=== PATIENT | female | born 1990 | race African-American/Black ===

== ENCOUNTER 2022-12-05 15:30 | Emergency (ER) | payer SELFPAY ==
--- OUTSIDE RECORDS SUMMARY | 2022-12-05 15:34 | XMS REPORT | Continuity of Care Document ---
:1990 Author Organization [facility] t Address [address] [facility] [address] [place] [id number] Care Team Providers Name Role Phone ARACELI CURRY Attending Clinician Unavailable Araceli Chester Attending Clinician [phone] FRANCISCO BINGHAM Attending Clinician Unavailable Lab, [facility] F[facility] Pob I Attending Clinician Unavailable Daisy Gonzalez Attending Clinician DAISY ESPANA Attending Clinician Unavailable Doctor Unassigned, [place] Attending Clinician Unavailable Matthew Rodas Attending Clinician Payers Payer Name Policy Type Policy Number Effective Date Expiration Date S quyen KAUR [id number] 2019 00:00:00 [facility] [id number] 2017 00:00:00 Problems Condition Condition Condition Status Onset Resolution Last Treating Co mments Source Name Details Category Date Date Treatment Clinician Date Cervical Cervical Disease Active 2019-03 Overview: Un kassy Papanicola Papanicola 0-19 Formattin ity of ou smear ou smear 00:00: g of this [place] as negative negative 00 note Medica l within within might be Branch last 12 last 12 different months months from the original. 12/2018, nil pap see scanned records Elevated Elevated Disease Active Unive rs blood blood 8-31 ity of pressure pressure 00:00: [place] reading reading 00 Medical without without Branch diagnosis diagnosis of of hypertensi hypertensi on on Well woman Well woman Disease Active U nivers exam exam 4-16 ity of 00:00: [place] 00 Medical Branch Well woman Well woman Disease Active 2018-0 U nivers exam exam 4-16 ity of 00:00: [place] 00 Medical Branch Obesity Obesity Disease Active Overview: Univ ers (BMI (BMI 7-23 Formattin ity of 30-39.9) 30-39.9) 00:00: g of this Derrick as 00 note Medical might be Branch different from the original. 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 Allergies, Adverse Reactions, Alerts Allergy Allergy Status Severity Reaction(s) Onset Inactive Treating Comm ents Source Name Type Date Date Clinician NO KNOWN Drug Active Univers ALLERGIE Class ity of S [facility] Social History Social Habit Start Date Stop Date Quantity Comments Source Exposure to Not sure [facility] SARS-CoV-2 [facility] (event) [place] Alcohol intake 2020-01-06 2020-01-06 Current drinker Unive rsity of 00:00:00 00:00:00 of alcohol [facility] (finding) [place] Tobacco use and 2020-01-06 2020-01-06 Never used Universit y of exposure 00:00:00 00:00:00 [facility] [place] [facility] Alcohol Comment 2012-08-17 2012-08-17 socially Universit y of 00:00:00 00:00:00 [facility] [place] [facility] Sex [birth year] At [birth year] Universit y of 00:00:00 00:00:00 [facility] [place] [facility] Smoking Status Start Date Stop Date Source Never smoker [facility] Medications Ordered Filled Start Stop Current Ordering Indication Dosage Frequency Signature Comments Components Source Medication Medication Date Date Medication? Clinician (SIG) Name Name ampicillin 0 202- No [id number] 500mg Take 1 Univers 500 mg 08-24 capsule by ity of capsule 00:00: 04:59 mouth 4 [place] 00 :00 (four) Medical times Branch daily for 10 days. ampicillin 2020- No [id number] 500mg Take 1 Univers 500 mg 08-24 capsule by ity of capsule 00:00: 04:59 mouth 4 [place] 00 :00 (four) Medical times Branch daily for 10 days. ibuprofen 2018- No 600mg 600 mg, Uni vers (IBU) 11-11 Oral, ity of tablet 600 03:22: 03:36 ONCE, 1 [place] as mg 00 :00 dose, Sat Medical 11/10/18 at Branch 2230, BASHIR cephALEXin 2018- No 500mg 500 mg, Un kassy (KEFLEX) 11-11 Oral, ity of capsule 500 03:21: 03:36 [place]CE[place] 1 [place] mg 00 :[place] dose, Sat Medical 11/10/18 at Branch 2230, BASHIR
Re ason for Anti-Infec tive: Empiric Therapy for Suspected Infection< br>Empiric Therapy Site: Skin / Soft tissue
Duration of therapy: 72 hours tetanus-dip 2019- No .5mL 0.5 mL, Un kassy htheria 11-11 Intramuscu ity o f toxoids 02:39: 02:53 lar, ONCE, [place] as (TDVAX) 2-2 00 :00 1 dose, Medic al Lf unit/0.5 [facility] mL 11/10/18 at injection 2145, BASHIR 0.5 mL cephALEXin 2019- No [id number] 500mg Take 1 Univers (KEFLEX) 11-10 capsule by ity of 500 mg 00:00: 04:59 mouth 4 [place] capsule 00 :00 (four) Medical times Branch daily for 7 days. oseltamivir 2017- Yes 75mg Take 1 Univ ers (TAMIFLU) 1-02 capsule by ity of 75 mg 00:00: mouth 2 [place] capsule 00 (two) Medical times Branch daily. ondansetron 2017-0 Yes 8mg Take 1 Univ ers (ZOFRAN, 1-02 tablet by ity of HYDROCHLORI 00:00: mouth [place] DE,) 8 mg 00 every 8 Medical tablet (eight) Branch hours as needed for Nausea and Vomiting (N/V). ibuprofen 2017- Yes 600mg Take 1 Unive rs 600 mg 1-02 tablet by ity of tablet 00:00: mouth [place] 00 every 6 Medical (six) Branch hours as needed for Pain (scale 4-6). oseltamivir 2018-0 Yes 75mg Take 1 Univ ers (TAMIFLU) 1-02 capsule by ity of 75 mg 00:00: mouth 2 [place] capsule 00 (two) Medical times Branch daily. ondansetron 2018-0 Yes 8mg Take 1 Univ ers (ZOFRAN, 1-02 tablet by ity of HYDROCHLORI 00:00: mouth [place] DE,) 8 mg 00 every 8 Medical tablet (eight) Branch hours as needed for Nausea and Vomiting (N/V). ibuprofen 2018-0 Yes 600mg Take 1 Unive rs 600 mg 1-02 tablet by ity of tablet 00:00: mouth [place] 00 every 6 Medical (six) Branch hours as needed for Pain (scale 4-6). oseltamivir 2018-0 Yes 75mg Take 1 Univ ers (TAMIFLU) 1-02 capsule by ity of 75 mg 00:00: mouth 2 [place] capsule 00 (two) Medical times Branch daily. ondansetron 2018-0 Yes 8mg Take 1 Univ ers (ZOFRAN, 1-02 tablet by ity of HYDROCHLORI 00:00: mouth [place] DE,) 8 mg 00 every 8 Medical tablet (eight) Branch hours as needed for Nausea and Vomiting (N/V). ibuprofen 2018-0 Yes 600mg Take 1 Unive rs 600 mg 1-02 tablet by ity of tablet 00:00: mouth [place] 00 every 6 Medical (six) Branch hours as needed for Pain (scale 4-6). oseltamivir 2018-0 Yes 75mg Take 1 Univ ers (TAMIFLU) 1-02 capsule by ity of 75 mg 00:00: mouth 2 [place] capsule 00 (two) Medical times Branch daily. ondansetron 2018-0 Yes 8mg Take 1 Univ ers (ZOFRAN, 1-02 tablet by ity of HYDROCHLORI 00:00: mouth [place] DE,) 8 mg 00 every 8 Medical tablet (eight) Branch hours as needed for Nausea and Vomiting (N/V). ibuprofen 2018-0 Yes 600mg Take 1 Unive rs 600 mg 1-02 tablet by ity of tablet 00:00: mouth [place] 00 every 6 Medical (six) Branch hours as needed for Pain (scale 4-6). oseltamivir 2018-0 Yes 75mg Take 1 Univ ers (TAMIFLU) 1-02 capsule by ity of 75 mg 00:00: mouth 2 [place] capsule 00 (two) Medical times Branch daily. ondansetron 2018-0 Yes 8mg Take 1 Univ ers (ZOFRAN, 1-02 tablet by ity of HYDROCHLORI 00:00: mouth [place] DE,) 8 mg 00 every 8 Medical tablet (eight) Branch hours as needed for Nausea and Vomiting (N/V). ibuprofen 2018-0 Yes 600mg Take 1 Unive rs 600 mg 1-02 tablet by ity of tablet 00:00: mouth [place] 00 every 6 Medical (six) Branch hours as needed for Pain (scale 4-6). oseltamivir 2018-0 Yes 75mg Take 1 Univ ers (TAMIFLU) 1-02 capsule by ity of 75 mg 00:00: mouth 2 [place] capsule 00 (two) Medical times Branch daily. ondansetron 2018-0 Yes 8mg Take 1 Univ ers (ZOFRAN, 1-02 tablet by ity of HYDROCHLORI 00:00: mouth [place] DE,) 8 mg 00 every 8 Medical tablet (eight) Branch hours as needed for Nausea and Vomiting (N/V). ibuprofen 2018-0 Yes 600mg Take 1 Unive rs 600 mg 1-02 tablet by ity of tablet 00:00: mouth [place] 00 every 6 Medical (six) Branch hours as needed for Pain (scale 4-6). oseltamivir 2018-0 Yes 75mg Take 1 Univ ers (TAMIFLU) 1-02 capsule by ity of 75 mg 00:00: mouth 2 [place] capsule 00 (two) Medical times Branch daily. ondansetron 2018-0 Yes 8mg Take 1 Univ ers (ZOFRAN, 1-02 tablet by ity of HYDROCHLORI 00:00: mouth [place] DE,) 8 mg 00 every 8 Medical tablet (eight) Branch hours as needed for Nausea and Vomiting (N/V). ibuprofen 2018-0 Yes 600mg Take 1 Unive rs 600 mg 1-02 tablet by ity of tablet 00:00: mouth [place] 00 every 6 Medical (six) Branch hours as needed for Pain (scale 4-6). oseltamivir 2018-0 Yes 75mg Take 1 Univ ers (TAMIFLU) 1-02 capsule by ity of 75 mg 00:00: mouth 2 [place] capsule 00 (two) Medical times Branch daily. ondansetron 2018-0 Yes 8mg Take 1 Univ ers (ZOFRAN, 1-02 tablet by ity of HYDROCHLORI 00:00: mouth [place] DE,) 8 mg 00 every 8 Medical tablet (eight) Branch hours as needed for Nausea and Vomiting (N/V). ibuprofen 2018-0 Yes 600mg Take 1 Unive rs 600 mg 1-02 tablet by ity of tablet 00:00: mouth [place] 00 every 6 Medical (six) Branch hours as needed for Pain (scale 4-6). oseltamivir 2018-0 Yes 75mg Take 1 Univ ers (TAMIFLU) 1-02 capsule by ity of 75 mg 00:00: mouth 2 [place] capsule 00 (two) Medical times Branch daily. ondansetron 2018-0 Yes 8mg Take 1 Univ ers (ZOFRAN, 1-02 tablet by ity of HYDROCHLORI 00:00: mouth [place] DE,) 8 mg 00 every 8 Medical tablet (eight) Branch hours as needed for Nausea and Vomiting (N/V). ibuprofen 2018-0 Yes 600mg Take 1 Unive rs 600 mg 1-02 tablet by ity of tablet 00:00: mouth [place] 00 every 6 Medical (six) Branch hours as needed for Pain (scale 4-6). oseltamivir 2018-0 Yes 75mg Take 1 Univ ers (TAMIFLU) 1-02 capsule by ity of 75 mg 00:00: mouth 2 [place] capsule 00 (two) Medical times Branch daily. ondansetron 2018-0 Yes 8mg Take 1 Univ ers (ZOFRAN, 1-02 tablet by ity of HYDROCHLORI 00:00: mouth [place] DE,) 8 mg 00 every 8 Medical tablet (eight) Branch hours as needed for Nausea and Vomiting (N/V). ibuprofen 2018-0 Yes 600mg Take 1 Unive rs 600 mg 1-02 tablet by ity of tablet 00:00: mouth [place] 00 every 6 Medical (six) Branch hours as needed for Pain (scale 4-6). oseltamivir 2018-0 Yes 75mg Take 1 Univ ers (TAMIFLU) 1-02 capsule by ity of 75 mg 00:00: mouth 2 [place] capsule 00 (two) Medical times Branch daily. ondansetron 2018-0 Yes 8mg Take 1 Univ ers (ZOFRAN, 1-02 tablet by ity of HYDROCHLORI 00:00: mouth [place] DE,) 8 mg 00 every 8 Medical tablet (eight) Branch hours as needed for Nausea and Vomiting (N/V). ibuprofen 2018-0 Yes 600mg Take 1 Unive rs 600 mg 1-02 tablet by ity of tablet 00:00: mouth [place] 00 every 6 Medical (six) Branch hours as needed for Pain (scale 4-6). oseltamivir 2018-0 Yes 75mg Take 1 Univ ers (TAMIFLU) 1-02 capsule by ity of 75 mg 00:00: mouth 2 [place] capsule 00 (two) Medical times Branch daily. ondansetron 2018-0 Yes 8mg Take 1 Univ ers (ZOFRAN, 1-02 tablet by ity of HYDROCHLORI 00:00: mouth [place] DE,) 8 mg 00 every 8 Medical tablet (eight) Branch hours as needed for Nausea and Vomiting (N/V). ibuprofen 2018-0 Yes 600mg Take 1 Unive rs 600 mg 1-02 tablet by ity of tablet 00:00: mouth [place] 00 every 6 Medical (six) Branch hours as needed for Pain (scale 4-6). oseltamivir 2018-0 Yes 75mg Take 1 Univ ers (TAMIFLU) 1-02 capsule by ity of 75 mg 00:00: mouth 2 [place] capsule 00 (two) Medical times Branch daily. ondansetron 2018-0 Yes 8mg Take 1 Univ ers (ZOFRAN, 1-02 tablet by ity of HYDROCHLORI 00:00: mouth [place] DE,) 8 mg 00 every 8 Medical tablet (eight) Branch hours as needed for Nausea and Vomiting (N/V). ibuprofen 2018-0 Yes 600mg Take 1 Unive rs 600 mg 1-02 tablet by ity of tablet 00:00: mouth [place] 00 every 6 Medical (six) Branch hours as needed for Pain (scale 4-6). metroNIDAZO 2016-0 Yes [id number] 500mg Take 1 Tab Univers LE (FLAGYL) 2-23 by mouth 2 it y of 500 mg 00:00: (two) [place] tablet 00 times Medical daily. Branch metroNIDAZO 2016-0 Yes [id number] 500mg Take 1 Tab Univers LE (FLAGYL) 2-23 by mouth 2 it y of 500 mg 00:00: (two) [place] tablet 00 times Medical daily. Branch metroNIDAZO Yes [id number] 500mg Take 1 Tab Univers LE (FLAGYL) 2-23 by mouth 2 it y of 500 mg 00:00: (two) [place] tablet 00 times Medical daily. Branch metroNIDAZO 0 Yes [id number] 500mg Take 1 Tab Univers LE (FLAGYL) 2-23 by mouth 2 it y of 500 mg 00:00: (two) [place] tablet 00 times Medical daily. Branch metroNIDAZO Yes [id number] 500mg Take 1 Tab Univers LE (FLAGYL) 2-23 by mouth 2 it y of 500 mg 00:00: (two) [place] tablet 00 times Medical daily. Branch metroNIDAZO Yes [id number] 500mg Take 1 Tab Univers LE (FLAGYL) 2-23 by mouth 2 it y of 500 mg 00:00: (two) [place] tablet 00 times Medical daily. [place] metroNIDAZO Yes [id number] 500mg Take 1 Tab Univers LE (FLAGYL) 2-23 by mouth 2 it y of 500 mg 00:00: (two) [place] tablet 00 times Medical daily. [place] metroNIDAZO Yes [id number] 500mg Take 1 Tab Univers LE (FLAGYL) 2-23 by mouth 2 it y of 500 mg 00:00: (two) [place] tablet 00 times Medical daily. [place] metroNIDAZO Yes [id number] 500mg Take 1 Tab Univers LE (FLAGYL) 2-23 by mouth 2 it y of 500 mg 00:00: (two) [place] tablet 00 times Medical daily. [place] metroNIDAZO Yes [id number] 500mg Take 1 Tab Univers LE (FLAGYL) 2-23 by mouth 2 it y of 500 mg 00:00: (two) [place] tablet 00 times Medical daily. [place] metroNIDAZO Yes [id number] 500mg Take 1 Tab Univers LE (FLAGYL) 2-23 by mouth 2 it y of 500 mg 00:00: (two) [place] tablet 00 times Medical daily. [place] metroNIDAZO Yes [id number] 500mg Take 1 Tab Univers LE (FLAGYL) 2-23 by mouth 2 it y of 500 mg 00:00: (two) [place] tablet 00 times Medical daily. [place] metroNIDAZO Yes [id number] 500mg Take 1 Tab Univers LE (FLAGYL) 2-23 by mouth 2 it y of 500 mg 00:00: (two) [place] tablet 00 times Medical daily. Branch ORTHO 2014- Yes 1{tbl} Take 1 Tab Univ ers TRI-CYCLEN- 7-20 by mouth ity of 28 (ORTHO 00:00: daily. [place] TRI-CYCLEN, Medical 28,) Branch 0.18/0.215/ 0.25 mg-35 mcg (28) tablet ORTHO Yes 1{tbl} Take 1 Tab Univ ers TRI-CYCLEN- 7-20 by mouth ity of 28 (ORTHO 00:00: daily. [place] TRI-CYCLEN, Medical 28,) Branch 0.18/0.215/ 0.25 mg-35 mcg (28) tablet ORTHO Yes 1{tbl} Take 1 Tab Univ ers TRI-CYCLEN- 7-20 by mouth ity of 28 (ORTHO 00:00: daily. [place] TRI-CYCLEN, Medical 28,) Branch 0.18/0.215/ 0.25 mg-35 mcg (28) tablet ORTHO Yes 1{tbl} Take 1 Tab Univ ers TRI-CYCLEN- 7-20 by mouth ity of 28 (ORTHO 00:00: daily. [place] TRI-CYCLEN, Medical 28,) Branch 0.18/0.215/ 0.25 mg-35 mcg (28) tablet ORTHO Yes 1{tbl} Take 1 Tab Univ ers TRI-CYCLEN- 7-20 by mouth ity of 28 (ORTHO 00:00: daily. [place] TRI-CYCLEN, Medical 28,) Branch 0.18/0.215/ 0.25 mg-35 mcg (28) tablet ORTHO Yes 1{tbl} Take 1 Tab Univ ers TRI-CYCLEN- 7-20 by mouth ity of 28 (ORTHO 00:00: daily. [place] TRI-CYCLEN, Medical 28,) Branch 0.18/0.215/ 0.25 mg-35 mcg (28) tablet ORTHO Yes 1{tbl} Take 1 Tab Univ ers TRI-CYCLEN- 7-20 by mouth ity of 28 (ORTHO 00:00: daily. [place] TRI-CYCLEN, Medical 28,) Branch 0.18/0.215/ 0.25 mg-35 mcg (28) tablet ORTHO Yes 1{tbl} Take 1 Tab Univ ers TRI-CYCLEN- 7-20 by mouth ity of 28 (ORTHO 00:00: daily. [place] TRI-CYCLE [facility] ,) Branch 0.18/0.215/ 0.25 mg-35 mcg (28) tablet ORTHO 2014- Yes 1{tbl} Take 1 Tab Univ ers TRI-CYCLEN- 7-20 by mouth ity of 28 (ORTHO 00:00: daily. [place] TRI-CYCLE [facility] ,) Branch 0.18/0.215/ 0.25 mg-35 mcg (28) tablet ORTHO Yes 1{tbl} Take 1 Tab Univ ers TRI-CYCLEN- 7-20 by mouth ity of 28 (ORTHO 00:00: daily. [place] TRI-CYCLE [facility] ,) Branch 0.18/0.215/ 0.25 mg-35 mcg (28) tablet ORTHO Yes 1{tbl} Take 1 Tab Univ ers TRI-CYCLEN- 7-20 by mouth ity of 28 (ORTHO 00:00: daily. [place] TRI-CYCLE[address] ,) Branch 0.18/0.215/ 0.25 mg-35 mcg (28) tablet ORTHO Yes 1{tbl} Take 1 Tab Univ ers TRI-CYCLEN- 7-20 by mouth ity of 28 (ORTHO 00:00: daily. [place] TRI-CYCLE [address] [place] [address] ,) Branch 0.18/0.215/ 0.25 mg-35 mcg (28) tablet ORTHO Yes 1{tbl} Take 1 Tab Univ ers TRI-CYCLEN- 7-20 by mouth ity of 28 (ORTHO 00:00: daily. [place] TRI-CY[address] ,) Branch 0.18/0.215/ 0.25 mg-35 mcg (28) tablet Immunizations Ordered Filled Immunization Date Status Comments [facility] e Immunization Name Name SARS-COV-2 COVID-19 2020-06-13 Completed Unive rsity of PFIZER VACCINE 00:00:00 [facility] SARS-COV-2 COVID-19 2020-06-13 Completed Unive rsity of PFIZER VACCINE 00:00:00 [facility] SARS-COV-2 COVID-19 2020-06-13 Completed Unive rsity of PFIZER VACCINE 00:00:00 [facility] SARS-COV-2 COVID-19 2020-06-13 Completed Unive rsity of PFIZER VACCINE 00:00:00 [facility] SARS-COV-2 COVID-19 2020-06-13 Completed Unive rsity of PFIZER VACCINE 00:00:00 [facility] SARS-COV-2 COVID-19 2020-05-23 Completed Unive rsity of PFIZER VACCINE 00:00:00 [facility] SARS-COV-2 COVID-19 2020-05-23 Completed Unive rsity of PFIZER VACCINE 00:00:00 [facility] SARS-COV-2 COVID-19 2020-05-23 Completed Unive rsity of PFIZER VACCINE 00:00:00 [facility] SARS-COV-2 COVID-19 2020-05-23 Completed Unive rsity of PFIZER VACCINE 00:00:00 [facility] SARS-COV-2 COVID-19 2020-05-23 Completed Unive rsity of PFIZER VACCINE 00:00:00 [facility] Influenza Virus 2020-01-06 Completed Universit y of Vaccine Quad .5 mL 00:00:00 [place] [facility] IM 6+ MO Branch Influenza Virus 2020-01-06 Completed Universit y of Vaccine [place] .5 mL 00:00:00 [place] [facility] IM 6+ MO Branch Influenza Virus 2020-01-06 Completed Universit y of Vaccine [place] .5 mL 00:00:00 [facility] 6+ MO Branch Influenza Virus 2020-01-06 Completed Universit y of Vaccine [place] .5 mL 00:00:00 [place] [facility] IM 6+ MO Branch Influenza Virus 2020-01-06 Completed Universit y of Vaccine [place] .5 mL 00:00:00 [place] [facility] IM 6+ MO Branch Influenza Virus 2020-01-06 Completed Universit y of Vaccine [place] .5 mL 00:00:00 [place] [facility] IM 6+ MO Branch Influenza Virus 2020-01-06 Completed Universit y of Vaccine [place] .5 mL 00:00:00 [place] [facility] IM 6+ MO Branch Influenza Virus 2020-01-06 Completed Universit y of Vaccine [place] .5 mL 00:00:00 [facility] 6+ MO Branch Td 2018-11-10 Completed University of 00:00:00 [facility] [place] [facility] Td 2018-11-10 Completed University of 00:00:00 [place] [facility] Td 2018-11-10 Completed University of 00:00:00 [place] [facility] Td 2018-11-10 Completed University of 00:00:00 [place] [facility] Td 2018-11-10 Completed University of 00:00:00 [place] [facility] Td 2018-11-10 Completed University of 00:00:00 [place] [facility] Td 2018-11-10 Completed University of 00:00:00 [place] [facility] Td 2018-11-10 Completed University of 00:00:00 [place] [facility] Td 2018-11-10 Completed University of 00:00:00 [place] [facility] Td 2018-11-10 Completed University of 00:00:00 [place] [facility] Td 2018-11-10 Completed University of 00:00:00 [place] [facility] Td 2018-11-10 Completed University of 00:00:00 [place] [facility] HPV 2009-02-27 Completed University of 00:00:00 [place] [facility] HPV 2009-02-27 Completed University of 00:00:00 [place] [facility] HPV 2009-02-27 Completed University of 00:00:00 [place] [facility] HPV 2009-02-27 Completed University of 00:00:00 [place] [facility] HPV 2009-02-27 Completed University of 00:00:00 [place] [facility] HPV 2009-02-27 Completed University of 00:00:00 [place] [facility] HPV 2009-02-27 Completed University of 00:00:00 [place] [facility] HPV 2009-02-27 Completed University of 00:00:00 [place] [facility] HPV 2009-02-27 Completed University of 00:00:00 [place] [facility] HPV 2009-02-27 Completed University of 00:00:00 [place] [facility] HPV 2009-02-27 Completed University of 00:00:00 [place] [facility] HPV 2009-02-27 Completed University of 00:00:00 [place] [facility] HPV 2009-02-27 Completed University of 00:00:00 [place] [facility] HPV 2008-08-26 Completed University of 00:00:00 [place] [facility] HPV 2008-08-26 Completed University of 00:00:00 [place] [facility] HPV 2008-08-26 Completed University of 00:00:00 [place] [facility] HPV 2008-08-26 Completed University of 00:00:00 [place] [facility] HPV 2008-08-26 Completed University of 00:00:00 [place] [facility] HPV 2008-08-26 Completed University of 00:00:00 [place] [facility] HPV 2008-08-26 Completed University of 00:00:00 [place] [facility] HPV 2008-08-26 Completed University of 00:00:00 [place] [facility] HPV 2008-08-26 Completed University of 00:00:00 [place] [facility] HPV 2008-08-26 Completed University of 00:00:00 [place] [facility] HPV 2008-08-26 Completed University of 00:00:00 [place] [facility] HPV 2008-08-26 Completed University of 00:00:00 [place] [facility] HPV 2008-08-26 Completed University of 00:00:00 [place] [facility] HPV 2008-01-16 Completed University of 00:00:00 [place] [facility] HPV 2008-01-16 Completed University of 00:00:00 [place] [facility] HPV 2008-01-16 Completed University of 00:00:00 [place] [facility] HPV 2008-01-16 Completed University of 00:00:00 [place] [facility] HPV 2008-01-16 Completed University of 00:00:00 [place] [facility] HPV 2008-01-16 Completed University of 00:00:00 [place] [facility] HPV 2008-01-16 Completed University of 00:00:00 [place] [facility] HPV 2008-01-16 Completed University of 00:00:00 [place] [facility] HPV 2008-01-16 Completed University of 00:00:00 [place] [facility] HPV 2008-01-16 Completed University of 00:00:00 [place] [facility] HPV 2008-01-16 Completed University of 00:00:00 [place] [facility] HPV 2008-01-16 Completed University of 00:00:00 [place] [facility] HPV 2008-01-16 Completed University of 00:00:00 [place] [facility] Td 2006 Completed University of 00:00:00 [place] [facility] Td 2006 Completed University of 00:00:00 [place] [facility] Td 2006 Completed University of 00:00:00 [place] [facility] Td 2006 Completed University of 00:00:00 [place] [facility] Td 2006 Completed University of 00:00:00 [place] [facility] Td 2006 Completed University of 00:00:00 [place] [facility] Td 2006 Completed University of 00:00:00 [place] [facility] Td 2006 Completed University of 00:00:00 [place] [facility] Td 2006 Completed University of 00:00:00 [place] [facility] Td 2006 Completed University of 00:00:00 [place] [facility] Td 2006 Completed University of 00:00:00 [place] [facility] Td 2006 Completed University of 00:00:00 [place] [facility] Td 2006 Completed University of 00:00:00 [place] [facility] Vital Signs Vital Name Observation Time Observation Value Comments Source Systolic blood 2020-08-21 14:59:00 131 mm[Hg] Univer sity of pressure [place] [facility] Diastolic blood 2020-08-21 14:59:00 94 mm[Hg] Unive rsity of pressure [place] [facility] Heart rate 2020-08-21 14:58:00 83 /min [facility] [place] [facility] Body temperature 2020-08-21 14:58:00 36.78 Amber [facility] [place] [facility] Respiratory rate 2020-08-21 14:58:00 16 /min [facility] [place] [facility] Body height 2020-08-21 14:58:00 160 cm [facility] [place] [facility] Body weight 2020-08-21 14:58:00 99.394 kg [facility] [place] [facility] BMI 2020-08-21 14:58:00 38.82 kg/m2 [facility] [place] [facility] Systolic blood 2020-01-06 14:40:00 129 mm[Hg] Univer sity of pressure [place] [facility] Diastolic blood 2020-01-06 14:40:00 88 mm[Hg] Unive rsity of pressure [place] [facility] Heart rate 2020-01-06 14:40:00 69 /min [facility] [place] [facility] Body temperature 2020-01-06 14:40:00 36.56 Amber [facility] [place] [facility] Respiratory rate 2020-01-06 14:40:00 16 /min [facility] [place] [facility] Body height 2020-01-06 14:40:00 160 cm [facility] Body weight 2020-01-06 14:40:00 99.565 kg [facility] BMI 2020-01-06 14:40:00 38.88 kg/m2 [facility] Systolic blood 2019-11-18 19:42:00 145 mm[Hg] [facility] Diastolic blood 2019-11-18 19:42:00 97 mm[Hg] [facility] [place] Heart rate 2019-11-18 19:41:00 65 /min [facility] Body temperature 2019-11-18 19:41:00 37 Amber [facility] Respiratory rate 2019-11-18 19:41:00 16 /min Univ [facility] Body height 2019-11-18 19:41:00 160 cm [facility] Body weight 2019-11-18 19:41:00 98.998 kg [facility] BMI 2019-11-18 19:41:00 38.66 kg/m2 [facility] Systolic blood 2018-11-11 02:42:00 138 mm[Hg] Univer sity of pressure [facility] Diastolic blood 2018-11-11 02:42:00 92 mm[Hg] Unive rsity of [facility] Heart rate 2018-11-11 02:42:00 91 /min [facility] Body temperature 2018-11-11 02:42:00 36.72 Amber [facility] ersity of [facility] Respiratory rate 2018-11-11 02:42:00 18 /min [facility] [place] Body weight 2018-11-11 02:42:00 99.791 kg [facility] BMI 2018-11-11 02:42:00 38.97 kg/m2 [facility] Oxygen saturation in 2018-11-11 02:42:00 100 /min [facility] blood by [facility] Pulse oximetry Branch Procedures Procedure Date / Time Performed Performing Clinician Sourc e POCT URINALYSIS W/O 2020-08-21 15:02:00 Araceli Curry [facility] [place] SPECIFIC GRAVITY [facility] FLU VACC ([id number]), 2020-01-06 14:50:58 [facility]aceli [facility], IM, QUAD Medical Bran ch ASSIGNMENT OF BENEFITS 2019-11-18 19:16:42 Doctor Unassigned, No [facility] Name [facility] XR HAND 3+ VW RIGHT 2018-11-11 02:49:58 Matthew [facility] NOTICE OF PRIVACY 2018-11-11 02:28:37 Doctor Unassigned, No [facility] Branch CONSENT/REFUSAL FOR 2018-11-11 02:28:18 Doctor Unassigned, No [facility] DI[facility] AND Name Medical Branch TREATMENT Encounters Start End Encounter Admission Attending Care Care Encounter Source Date/Time Date/Time Type Type Clinicians Facility Department ID 2022-01-21 2022-01-21 Outpatient NIMCO [facility] [id number] Aman 13:12:49 13:12:49 1104 F Catarino 2020-11-24 2020-11-24 Outpatient Mohinder CURRY [facility] [id number] Univers 14:15:00 14:15:00 ARACELI casas [facility] 2020-11-18 2020-11-18 Outpatient Mohinder CURRY [facility] [id number] Univers 08:15:00 08:15:00 ARACELI casas [facility] 2020-08-24 2020-08-24 [facility] [id number] Univers 00:00:00 00:00:00 Araceli Wiggins [employer] [id number] ity [facility] [id number] Derrick as MATERNAL [phone] [facility] & CHILD [address] [place] [address] 2020-08-21 2020-08-21 Office [facility] [id number] Univers 09:46:13 10:40:34 Visit Araceli Wiggins [employer] [id number] ity [facility] [id number] Derrick as MATERNAL [phone] [facility] & CHILD [address] [place] [address] 2020-08-21 2020-08-21 Outpatient Mohinder CURRY [facility] [id number] Univers 09:45:00 09:45:00 ARACELI casas [facility] 2020-06-13 2020-06-13 Outpatient Mohinder BINGHAM [facility] [id number] Univers 13:20:00 13:20:00 FRANCISCO itjoe [facility] 2020-05-23 2020-05-23 Outpatient Mohinder BINGHAM [facility] [id number] Univers 13:20:00 13:20:00 FRANCISCO itjoe [facility] 2020-01-21 2020-01-21 Laboratory Lab, Adc Fam Pob I [facility] [id number] Univers 15:40:41 16:00:41 Only Daisy [facility] [id number] ity [facility] [id number] Derrick as Professio [phone] Ne dical nal [address] [place] [address] 2020-01-21 2020-01-21 Outpatient R [facility] [id number] Univers 15:40:00 15:40:00 DAISY diaz [facility] 2020-01-06 2020-01-06 Office Akinsi, [facility] [id number] Univers 09:28:13 10:04:00 Visit [facility] [employer] [id number] ity [facility] [id number] Derrick as MATERNAL [phone] [facility] ical & CHILD [address] [place] [address] 2020-01-06 2020-01-06 Outpatient R AKINSIPE, [facility] [id number] Univers 09:30:00 09:30:00 ARACELI ity o [facility] 2019-12-02 2019-12-02 Outpatient R AKINSIPE, [facility] [id number] Univers 08:00:00 08:00:00 ARACELI ity o f [facility] 2019-11-18 2019-11-18 [facility] [id number] Univers 14:18:37 15:39:16 Visit [facility] [employer] [id number] ity [facility] [id number] Derrick as MATERNAL [phone] [facility] & CHILD [address] [place] [address] 2019-11-18 2019-11-18 Outpatient R AKINSIPE, [facility] [id number] Univers 14:15:00 14:15:00 ARACELI ity o f [facility] 2019-11-18 2019-11-18 Outpatient R AKINSIPE, [facility] [id number] Univers 14:15:00 14:15:00 ARACELI ity o f [facility] 2019-11-18 2019-11-18 Orders Doctor JOSE [id number] Univers 00:00:00 00:00:00 Only Unassigned, CHANDA [id number] [facility] [id number] Derrick as [phone] [facility] [address] [place] 2018-11-10 2018-11-10 Emergency Miki, [facility] [id number] Univers 21:43:07 22:49:00 Shinta Brady [id number] i ty of [place] [id number] [facility] [phone] [place] [id number] Branch 2018-11-10 2018-11-10 Orders Doctor JOSE [id number] Univers 00:00:00 00:00:00 Only Unassigned, CHANDA [id number] [facility] [place] [facility] [id number] Derrick as [phone] [address] Results Test Description Test Time Test Comments Results Result Comments Source VAGINAL PATHOGENS DNA PANEL 2021-04-14 15:35:03 Test Item Value Reference Range Interpretation Comme nts ANAND SPECIES (test code = 82350) NEGATIVE NEGATIVE G. VAGINALIS (test code = 11191) NEGATIVE NEGATIVE T. VAGINALIS (test code = 78568) NEGATIVE NEGATIVE CT/NG, NAAT, [id number] 13:14:00 Test Item Value Reference Range Interpretation Comments GONORRHEA, NAAT NEGATIVE NEGATIVE IMPORTA NT NOTICE: SEE (test code = [place] [address]) [email or web address] Note: Testing is perf ormed with Vic JEREL 680 method using re al-time polymerase gretchen n reaction (PCR) method. CHLAMYDIA, NAAT NEGATIVE NEGATIVE IMPORTA NT NOTICE: SEE (test code = [place] [address]) [email or web address] Note: Testing is perf ormed with Vic JEREL 680 method using re al-time polymerase gretchen n reaction (PCR) method. U NLESS OTHERWISE INDIC ATED, ALL TESTING PERFORM ED ATCLINICAL PATH OLOGY LABORATORIES, I [place]. [address] [facility] [place] [address] LABORATORY DIRE CTOR: [place] ALEJANDRE. CLIA NUMBER [id number] CAP ACCREDITATION N O. [id number] POCT URINALYSIS W/O SPECIFIC [id number] 15:02:00 Test Item Value Reference Range Interpretation Comments POCT PH U (test code = 3254) 6 mg/dl 5-8 POCT U LEUK EST (test code = Neg Negative - Negative 3263) POCT U NIT (test code = 3262) Neg Negative - Negative POCT U PROT (test code = 3259) Trace Negative - Negative POCT U GLU (test code = 3256) Neg Negative - Negative POCT U KETONE (test code = 3258) Small Negative - Negative POCT U BLD (test code = 3257) Trace Negative - Negative [facility] SPECIFIC [id number] 15:02:00 Test Item Value Reference Range Interpretation Comments POCT PH U (test code = 3254) 6 mg/dl 5-8 POCT U LEUK EST (test code = Neg Negative - Negative 3263) POCT U NIT (test code = 3262) Neg Negative - Negative POCT U PROT (test code = 3259) Trace Negative - Negative POCT U GLU (test code = 3256) Neg Negative - Negative POCT U KETONE (test code = 3258) Small Negative - Negative POCT U BLD (test code = 3257) Trace Negative - Negative [facility]/O SPECIFIC [id number] 15:02:00 Test Item Value Reference Range Interpretation Comments POCT PH U (test code = 3254) 6 mg/dl 5-8 POCT U LEUK EST (test code = Neg Negative - Negative 3263) POCT U NIT (test code = 3262) Neg Negative - Negative POCT U PROT (test code = 3259) Trace Negative - Negative POCT U GLU (test code = 3256) Neg Negative - Negative POCT U KETONE (test code = 3258) Small Negative - Negative POCT U BLD (test code = 3257) Trace Negative - Negative [facility]
[2022-12-05 17:16] LABS: Specific Gravity < 1.005 (1.005-1.030); Urine Bacteria None Seen /HPF (<20); Urine Bilirubin NEGATIVE (Negative); Urine Blood Negative (Negative); Urine Clarity Turbid (Clear); Urine Color Colorless (Yellow); Urine Glucose NEGATIVE (Negative); Urine Protein NEGATIVE (Negative); Urine RBC <5 /HPF (None Seen); Urine Urobilinogen Normal (Normal)
[2022-12-05 17:23] LABS: SARS-CoV-2 Antigen Rapid Res Negative (Negative)
[2022-12-05] MEDS ORDERED: KETOROLAC 30 MG/ML INJ ONE (17:49)
--- NOTE | 2022-12-05 18:29 | EDPHYS ---
Physician Documentation [facility] Name: Alicia Hare Age: 32 yrs Sex: Female : 1990 Arrival Date: 12/05/2022 Time: 15:30 Bed 7 Private MD: ED Physician Hilda Santoro HPI: 12/05 15:45 This 32 yrs old Black Female presents to ER via Ambulatory with complaints of Headache, snw Dizziness. 15:45 The patient complains of pain to the right quaker and left quaker. The patient snw describes the headache as intermittent. Onset: The symptoms/episode began/occurred 1 week(s) ago, and became persistent. Severity of symptoms: At its worst the pain was moderate. The patient has experienced similar episodes in the past. The patient has not recently seen a physician. 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 - Social history:: Smoking status: Patient denies any tobacco usage or history of. ROS: 15:43 Eyes: Negative for injury, pain, redness, and discharge, snw 15:43 Cardiovascular: Negative for chest pain, palpitations, and edema, 15:43 Abdomen/GI: Negative for abdominal pain, nausea, vomiting, diarrhea, and constipation, Back: Negative for injury and pain, : Negative for injury, bleeding, discharge, and swelling, MS/Extremity: Negative for injury and deformity, Skin: Negative for injury, rash, and discoloration, 15:43 Psych: Negative for depression, anxiety, suicide ideation, homicidal ideation, and hallucinations, 15:43 Constitutional: Positive for body aches, fatigue, malaise, 15:43 ENT: Positive for sinus congestion, 15:43 Neck: Positive for tenderness, 15:43 Respiratory: Positive for cough, shortness of breath, 15:43 Neuro: Positive for dizziness, headache, of the temples, Exam: 15:43 Constitutional: This is a well developed, well nourished patient who is awake, alert, snw and in no acute distress. Head/Face: Normocephalic, atraumatic. 15:43 ENT: Nares patent. No nasal discharge, no septal abnormalities noted. Tympanic membranes are normal and external auditory canals are clear. Oropharynx with no redness, swelling, or masses, exudates, or evidence of obstruction, uvula midline. Mucous membranes moist. Neck: Trachea midline, no thyromegaly or masses palpated, and no cervical lymphadenopathy. Supple, full range of motion without nuchal rigidity, or vertebral point tenderness. No Meningismus. Chest/axilla: Normal chest wall appearance and motion. Nontender with no deformity. No lesions are appreciated. Cardiovascular: Regular rate and rhythm with a normal S1 and S2. No gallops, murmurs, or rubs. Normal PMI, no JVD. No pulse deficits. Respiratory: Lungs have equal breath sounds bilaterally, clear to auscultation and percussion. No rales, rhonchi or wheezes noted. No increased work of breathing, no retractions or nasal flaring. Abdomen/GI: Soft, non-tender, with normal bowel sounds. No distension or tympany. No guarding or rebound. No evidence of tenderness throughout. Back: No spinal tenderness. No costovertebral tenderness. Full range of motion. Skin: Warm, dry with normal turgor. Normal color with no rashes, no lesions, and no evidence of cellulitis. MS/ Extremity: Pulses equal, no cyanosis. Neurovascular intact. Full, normal range of motion. Neuro: Awake and alert, GCS 15, oriented to person, place, time, and situation. Cranial nerves II-XII grossly intact. Motor strength 5/5 in all extremities. Sensory grossly intact. Cerebellar exam normal. Normal gait. Psych: Awake, alert, with orientation to person, place and time. Behavior, mood, and affect are within normal limits. 15:43 Head/face: strabismus. Vital Signs: 15:37 BP 129 / 78; Pulse 99; Resp 17; Temp 99.2(O); Pulse Ox 99% on R/A; Weight 101.6 kg; me1 Height 5 ft. 4 in. ; Pain 7/10; 15:37 Body Mass Index 38.45 (101.60 kg, 162.56 cm) [facility] 15:37 Pain Scale: Adult [facility] Val[place] Coma Score: 15:46 Eye Response: spontaneous(4). Motor Response: obeys commands(6). Verbal Response: snw oriented(5). Total: 15. MDM: 15:34 Patient medically screened. snw 15:46 Differential diagnosis: hypertensive headache, migraine, otitis, sinusitis. Data snw reviewed: vital signs, nurses notes. Counseling: I had a detailed discussion with the patient and/or guardian regarding the historical points, exam findings, and any diagnostic results supporting the discharge/admit diagnosis, lab results. 12/05 16:53 Order name: SARS RAPID; Complete Time: 17:23 snw 12/05 16:53 Order name: Flu; Complete Time: 18:23 snw 12/05 16:53 Order name: Urine W/Microscopic (UAM); Complete Time: 17:19 snw 12/05 17:25 Order name: PO challenge; Complete Time: 17:30 snw Administered Medications: 17:40 Drug: Ketorolac IM 30 mg IM once Route: IM; Site: left deltoid; ko1 19:10 Follow up: Response: No adverse reaction; Marked relief of symptoms 19:16 Drug: Trimethoprim-Sulfamethoxazole PO (160 mg-800 mg (DS) 1 tablet PO once Route: PO; snw Disposition: 16:09 I was immediately available on-site in the Emergency Department for consultation in the ms3 care of the patient. Disposition Summary: 12/05/22 18:28 Discharge Ordered Notes: Location: Home snw Condition: Stable snw Diagnosis - Tension-type headache snw - Fever, unspecified snw - Other abnormal findings in urine snw Followup: snw - With: Emergency Department - When: As needed - Reason: Worsening of condition Followup: snw - With: Private Physician - When: 2 - 3 days - Reason: Recheck today's complaints, Continuance of care, Re-evaluation by your physician Discharge Instructions: - Discharge Summary Sheet snw - Fever, Adult snw - Tension Headache, Adult snw - Urinary Tract Infection, Adult snw - Rehydration, Adult snw Forms: - Work release form snw - Medication Reconciliation Form snw - Thank You Letter snw - Antibiotic Education snw - Prescription Opioid Use snw - Patient Portal Instructions snw - Leadership Thank You Letter snw Prescriptions: - Bactrim DS 800-160 mg Oral Tablet - take 1 tablet by ORAL route every 12 hours for 10 days; 20 tablet; Refills: 0, snw Product Selection Permitted - orphenadrine citrate 100 mg Oral Tablet Sustained Release - take 1 tablet by ORAL route 2 times per day As needed; 20 tablet; Refills: 0, snw Product Selection Permitted Signatures: Dispatcher [employer] Nuvia Nagel FNP-C INSTRUCTOR ADJUNCT SURGICAL TECHNICIAN-Csnw Michael Chung DO DO ms3 Rosalia Espinal RN RN ko1 Marisa Taylor RN RN me1 Stefanie Fletcher RN
--- NOTE | 2022-12-05 18:29 | ER ---
Nurse's Notes [facility] Name: Alicia Hare Age: 32 yrs Sex: Female : 1990 Arrival Date: 12/05/2022 Time: 15:30 Bed 7 Private MD: Diagnosis: Tension-type headache;Fever, unspecified;Other abnormal findings in urine Presentation: 12/05 15:37 Chief complaint: Patient states: headache, dizziness, right posterior neck pain and sob me1 for about a week. Coronavirus screen: Vaccine status: Patient reports receiving the 2nd dose of the covid vaccine. headache, shortness of breath. Ebola Screen: No symptoms or risks identified at this time. Initial Sepsis Screen: Does the patient meet any 2 criteria? No. Patient's initial sepsis screen is negative. Does the patient have a suspected source of infection? No. Patient's initial sepsis screen is negative. Risk Assessment: Do you want to hurt yourself or someone else? Patient reports no desire to harm self or others. Onset of symptoms was November 28, 2022. 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 - Social history:: Smoking status: Patient denies any tobacco usage or history of. Screenin:08 [facility] ED Fall Risk Assessment (Adult) History of falling in the last 3 months, ko1 including since admission No falls in past 3 months (0 pts) Confusion or Disorientation No (0 pts) Intoxicated or Sedated No (0 pts) Impaired Gait No (0 pts) Mobility Assist Device Used No (0 pt) Altered Elimination No (0 pt) Score/Fall Risk Level 0 - 2 = Low Risk Oriented to surroundings, Maintained a safe environment, Educated pt \T\ family on fall prevention, incl call for assistance when getting out of bed, Assessed \T\ reinforced patient's understanding of fall precautions, Provided non-skid footwear, Hourly rounding (assess needs \T\ fall precautionary measures) done, Used ambulatory aids as needed (educated on \T\ assisted with), Used gait belt as appropriate. Abuse screen: Denies threats or abuse. Denies injuries from another. Nutritional screening: No deficits noted. Tuberculosis screening: No symptoms or risk factors identified. Assessment: 17:08 General: Appears in no apparent distress. comfortable, Behavior is calm, cooperative, ko1 appropriate for age. Pain: Complains of pain in left congregation and right congregation. Neuro: Reports dizziness, headache frontal area. Cardiovascular: No deficits noted. Respiratory: No deficits noted. GI: No deficits noted. : No deficits noted. EENT: Nares with drainage noted. Derm: No deficits noted. Musculoskeletal: No deficits noted. 19:10 Reassessment: Patient appears in no apparent distress at this time. Patient states kl feeling better. Patient states symptoms have improved. Vital Signs: 15:37 BP 129 / 78; Pulse 99; Resp 17; Temp 99.2(O); Pulse Ox 99% on R/A; Weight 101.6 kg; me1 Height 5 ft. 4 in. ; Pain 7/10; 15:37 Body Mass Index 38.45 (101.60 kg, 162.56 cm) me1 15:37 Pain Scale: Adult me1 [place] Coma Score: 15:46 Eye Response: spontaneous(4). Motor Response: obeys commands(6). Verbal Response: snw oriented(5). Total: 15. ED Course: 15:32 Patient arrived in ED. mr 15:34 Mcclendon NuviaSTEWART is [facility]. snw 15:34 Michael Chung DO is Attending Physician. snw 15:41 Triage completed. me1 15:41 Arm band placed on Patient placed in waiting room. me1 16:52 Rosalia Espinal, RN is Primary Nurse. ko1 17:08 Patient has correct armband on for positive identification. Bed in low position. Call ko1 light in reach. Provided Education on: na. Pulse ox on. NIBP on. Door closed. Noise minimized. Lights dimmed. 17:08 Urine W/Microscopic (UAM) Sent. ko1 17:08 Flu Sent. ko1 17:08 SARS RAPID Sent. ko1 19:11 No provider procedures requiring assistance completed. Patient did not have IV access kl during this emergency room visit. 19:15 Attending Physician role handed off by Michael Chung DO snw 19:17 Hilda Santoro MD is Attending Physician. snw Administered Medications: 17:40 Drug: Ketorolac IM 30 mg IM once Route: IM; Site: left deltoid; ko1 19:10 Follow up: Response: No adverse reaction; Marked relief of symptoms 19:16 Drug: Trimethoprim-Sulfamethoxazole PO (160 mg-800 mg (DS) 1 tablet PO once Route: PO; snw Outcome: 18:28 Discharge ordered by . snw 19:11 Discharged to home ambulatory, kl 19:11 Condition: stable 19:11 Discharge instructions given to patient, Instructed on discharge instructions, follow up and referral plans. medication usage, Demonstrated understanding of instructions, follow-up care, medications, Prescriptions given X 2, 19:11 Patient left the ED. 19:18 Patient left the ED. snw Signatures: Stefanie Fletcher, RN RN Nuvia Monaco, ELECTRONIC SYSTEMS TECHNICIAN-C ELECTRONIC SYSTEMS TECHNICIAN-Csnw Landy White, [facility] Adán mr Rosalia Espinal RN RN ko1 Marisa Taylor RN RN me1
[2022-12-05] MEDS ORDERED: SMZ./TMP. 800/160 MG TABLET ONE (19:23)
[2022-12-05 19:55] VITALS: BP 129/78; TEMP 99.2; O2SAT 99
== END 2022-12-05 19:18 | disposition home or self-care (01) ==
LOC: ER 15:30
DX: G44.209 Tension-type headache, unspecified, not intractable (principal); R50.9 Fever, unspecified; R82.998 Other abnormal findings in urine; Z20.822 Contact with and (suspected) exposure to COVID-19
CPT/HCPCS: 36415; 81001; 87804; 87811

== ENCOUNTER → 2023-03-16 | Emergency (ER) | payer SELFPAY ==
[~2023-03-16] MED LIST: KETOROLAC 30 MG/ML INJ ONE
--- OUTSIDE RECORDS SUMMARY | 2023-03-16 12:22 | XMS REPORT | Continuity of Care Document ---
Author Name Unknown Address [address] [place] [address] [facility] Address [address] [place] [address] Care Team Providers Care Lawn Care Technician Name Role Phone ARACELI CURRY Attending Clinician Unavail able Araceli Chester Attending Clinician + FRANCISCO BINGHAM Attending Clinician Unavailable Lab, Adc Fam Pob I Attending Clinician Unavailab Daisy Barrera Attending Clinician [phone] DAISY ESPANA Attending Clinician Unavailable Doctor Unassigned, [place] Attending Clinician U Matthew Muller Attending Clinician [phone] Payers Payer Name Policy Type Policy Number Effective Date Expirati on Date Source [employer] [id number] 2019 00:00:00 [facility] [id number] 2017 00:00:00 Problems Condition Name Condition Details Condition Category Status Onset Date Resolution Date Last Treatment Date Treating Clinician Comments Source Cervical Papanicola ou smear negative within last 12 months Cervical Papanicola ou smear negative within last 12 months Disease Active 2019-03 0- 00:00: 00 Overview: Formattin g of this note might be different from the original. 12/2018, nil pap see scanned records [facility] Elevated blood pressure reading without diagnosis of hypertensi on Elevated blood pressure reading without diagnosis of hypertensi on Disease Active 11-17 00:00: 00 [facility] Well woman exam Well woman exam Disease Active 07-03 00:00: 00 [facility] Well woman exam Well woman exam Disease Active 07-03 00:00: 00 [facility] Obesity (BMI 30-39.9) Obesity (BMI 30-39.9) Disease Active 10-09 00:00: 00 Overview: Formattin g of this note might be different from the original. ICD10 Diagnosis Term Rehabilitation Program Coordinator Utility [facility] History of abnormal cervical Pap smear History of abnormal cervical Pap smear Disease Active 10-09 00:00: 00 [facility] Contracept mike management Contracept mike management Disease Active 10-09 00:00: 00 Overview: ICD10 Diagnosis Term Rehabilitation Program Coordinator Utility [facility] Contracept mike management Contracept mike management Disease Active 10-09 00:00: 00 Overview: Formattin g of this note might be different from the original. ICD10 Diagnosis Term Rehabilitation Program Coordinator Utility [facility] Allergies, Adverse Reactions, Alerts Allergy Name Allergy Type Status Severity Reaction(s) Onset Date Inactive Date Treating Clinician Comments Source NO KNOWN ALLERGIE S Drug Class Active [facility] Social History Social Habit Start Date Stop Date Quantity Comments Source Exposure to SARS-CoV-2 (event) Not sure [facility] Alcohol intake 2020-01-06 00:00:00 2020-01-06 00:00:00 Current drinker of alcohol (finding) [facility] Tobacco use and exposure 2020-01-06 00:00:00 2020-01-06 00:00:00 Never used [facility] Alcohol Comment 2012-08-17 00:00:00 2012-08-17 00:00:00 socially [facility] Sex Assigned At 1990 00:00:00 1990 00:00:00 [facility] Smoking Status Start Date Stop Date Source Never smoker [facility] Medications Ordered Medication Name Filled Medication Name Start Date Stop Date Current Medication? Ordering Clinician Indication Dosage Frequency Signature (SIG) Comments Components Source ampicillin 500 mg capsule 08-24 00:00: 00 09-04 04:59 :00 No [id number] 500mg Take 1 capsule by mouth 4 (four) times daily for 10 days. [facility] ampicillin 500 mg capsule 2021-0 6-07 00:00: 00 09-04 04:59 :00 No [id number] 500mg Take 1 capsule by mouth 4 (four) times daily for 10 days. [facility] ibuprofen (IBU) tablet 600 mg 11-11 03:22: 00 11-11 03:36 :00 No 600mg 600 mg, Oral, ONCE, 1 dose, 11/10/18 at 2230, BASHIR [facility] cephALEXin (KEFLEX) capsule 500 mg 11-11 03:21: 00 11-11 03:36 :00 No 500mg 500 mg, Oral, ONCE, 1 dose, 11/10/18 at 2230, BASHIR
Re ason for Anti-Infec tive: Empiric Therapy for Suspected Infection< br>Empiric Therapy Site: Skin / Soft tissue
Duration of therapy: 72 hours [facility] tetanus-dip htheria toxoids (TDVAX) 2-2 Lf unit/0.5 mL injection 0.5 mL 11-11 02:39: 00 11-11 02:53 :00 No .5mL 0.5 mL, Intramuscu lar, ONCE, 1 dose, 11/10/18 at 2145, BASHIR [facility] cephALEXin (KEFLEX) 500 mg capsule 11-10 00:00: 00 11-18 04:59 :00 No [id number] 500mg Take 1 capsule by mouth 4 (four) times daily for 7 days. [facility] oseltamivir (TAMIFLU) 75 mg capsule 03-21 00:00: 00 Yes 75mg Take 1 capsule by mouth 2 (two) times daily. [facility] ondansetron (ZOFRAN, HYDROCHLORI DE,) 8 mg tablet 03-21 00:00: 00 Yes 8mg Take 1 tablet by mouth every 8 (eight) hours as needed for Nausea and Vomiting (N/V). [facility] ibuprofen 600 mg tablet 03-21 00:00: 00 Yes 600mg Take 1 tablet by mouth every 6 (six) hours as needed for Pain (scale 4-6). [facility] oseltamivir (TAMIFLU) 75 mg capsule 03-21 00:00: 00 Yes 75mg Take 1 capsule by mouth 2 (two) times daily. [facility] ondansetron (ZOFRAN, HYDROCHLORI DE,) 8 mg tablet 03-21 00:00: 00 Yes 8mg Take 1 tablet by mouth every 8 (eight) hours as needed for Nausea and Vomiting (N/V). [facility] ibuprofen 600 mg tablet 03-21 00:00: 00 Yes 600mg Take 1 tablet by mouth every 6 (six) hours as needed for Pain (scale 4-6). [facility] oseltamivir (TAMIFLU) 75 mg capsule 03-21 00:00: 00 Yes 75mg Take 1 capsule by mouth 2 (two) times daily. [facility] ondansetron (ZOFRAN, HYDROCHLORI DE,) 8 mg tablet 03-21 00:00: 00 Yes 8mg Take 1 tablet by mouth every 8 (eight) hours as needed for Nausea and Vomiting (N/V). [facility] ibuprofen 600 mg tablet 03-21 00:00: 00 Yes 600mg Take 1 tablet by mouth every 6 (six) hours as needed for Pain (scale 4-6). [facility] oseltamivir (TAMIFLU) 75 mg capsule 03-21 00:00: 00 Yes 75mg Take 1 capsule by mouth 2 (two) times daily. [facility] ondansetron (ZOFRAN, HYDROCHLORI DE,) 8 mg tablet 03-21 00:00: 00 Yes 8mg Take 1 tablet by mouth every 8 (eight) hours as needed for Nausea and Vomiting (N/V). [facility] ibuprofen 600 mg tablet 03-21 00:00: 00 Yes 600mg Take 1 tablet by mouth every 6 (six) hours as needed for Pain (scale 4-6). [facility] oseltamivir (TAMIFLU) 75 mg capsule 03-21 00:00: 00 Yes 75mg Take 1 capsule by mouth 2 (two) times daily. [facility] ondansetron (ZOFRAN, HYDROCHLORI DE,) 8 mg tablet 03-21 00:00: 00 Yes 8mg Take 1 tablet by mouth every 8 (eight) hours as needed for Nausea and Vomiting (N/V). [facility] ibuprofen 600 mg tablet 03-21 00:00: 00 Yes 600mg Take 1 tablet by mouth every 6 (six) hours as needed for Pain (scale 4-6). [facility] oseltamivir (TAMIFLU) 75 mg capsule 03-21 00:00: 00 Yes 75mg Take 1 capsule by mouth 2 (two) times daily. [facility] ondansetron (ZOFRAN, HYDROCHLORI DE,) 8 mg tablet 03-21 00:00: 00 Yes 8mg Take 1 tablet by mouth every 8 (eight) hours as needed for Nausea and Vomiting (N/V). [facility] ibuprofen 600 mg tablet 03-21 00:00: 00 Yes 600mg Take 1 tablet by mouth every 6 (six) hours as needed for Pain (scale 4-6). [facility] oseltamivir (TAMIFLU) 75 mg capsule 03-21 00:00: 00 Yes 75mg Take 1 capsule by mouth 2 (two) times daily. [facility] ondansetron (ZOFRAN, HYDROCHLORI DE,) 8 mg tablet 03-21 00:00: 00 Yes 8mg Take 1 tablet by mouth every 8 (eight) hours as needed for Nausea and Vomiting (N/V). [facility] ibuprofen 600 mg tablet 03-21 00:00: 00 Yes 600mg Take 1 tablet by mouth every 6 (six) hours as needed for Pain (scale 4-6). [facility] oseltamivir (TAMIFLU) 75 mg capsule 03-21 00:00: 00 Yes 75mg Take 1 capsule by mouth 2 (two) times daily. [facility] ondansetron (ZOFRAN, HYDROCHLORI DE,) 8 mg tablet 03-21 00:00: 00 Yes 8mg Take 1 tablet by mouth every 8 (eight) hours as needed for Nausea and Vomiting (N/V). [facility] ibuprofen 600 mg tablet 03-21 00:00: 00 Yes 600mg Take 1 tablet by mouth every 6 (six) hours as needed for Pain (scale 4-6). [facility] oseltamivir (TAMIFLU) 75 mg capsule 03-21 00:00: 00 Yes 75mg Take 1 capsule by mouth 2 (two) times daily. [facility] ondansetron (ZOFRAN, HYDROCHLORI DE,) 8 mg tablet 03-21 00:00: 00 Yes 8mg Take 1 tablet by mouth every 8 (eight) hours as needed for Nausea and Vomiting (N/V). [facility] ibuprofen 600 mg tablet 03-21 00:00: 00 Yes 600mg Take 1 tablet by mouth every 6 (six) hours as needed for Pain (scale 4-6). [facility] oseltamivir (TAMIFLU) 75 mg capsule 03-21 00:00: 00 Yes 75mg Take 1 capsule by mouth 2 (two) times daily. [facility] ondansetron (ZOFRAN, HYDROCHLORI DE,) 8 mg tablet 03-21 00:00: 00 Yes 8mg Take 1 tablet by mouth every 8 (eight) hours as needed for Nausea and Vomiting (N/V). [facility] ibuprofen 600 mg tablet 03-21 00:00: 00 Yes 600mg Take 1 tablet by mouth every 6 (six) hours as needed for Pain (scale 4-6). [facility] oseltamivir (TAMIFLU) 75 mg capsule 03-21 00:00: 00 Yes 75mg Take 1 capsule by mouth 2 (two) times daily. [facility] ondansetron (ZOFRAN, HYDROCHLORI DE,) 8 mg tablet 03-21 00:00: 00 Yes 8mg Take 1 tablet by mouth every 8 (eight) hours as needed for Nausea and Vomiting (N/V). [facility] ibuprofen 600 mg tablet 03-21 00:00: 00 Yes 600mg Take 1 tablet by mouth every 6 (six) hours as needed for Pain (scale 4-6). [facility] oseltamivir (TAMIFLU) 75 mg capsule 03-21 00:00: 00 Yes 75mg Take 1 capsule by mouth 2 (two) times daily. [facility] ondansetron (ZOFRAN, HYDROCHLORI DE,) 8 mg tablet 03-21 00:00: 00 Yes 8mg Take 1 tablet by mouth every 8 (eight) hours as needed for Nausea and Vomiting (N/V). [facility] ibuprofen 600 mg tablet 03-21 00:00: 00 Yes 600mg Take 1 tablet by mouth every 6 (six) hours as needed for Pain (scale 4-6). [facility] oseltamivir (TAMIFLU) 75 mg capsule 03-21 00:00: 00 Yes 75mg Take 1 capsule by mouth 2 (two) times daily. [facility] ondansetron (ZOFRAN, HYDROCHLORI DE,) 8 mg tablet 03-21 00:00: 00 Yes 8mg Take 1 tablet by mouth every 8 (eight) hours as needed for Nausea and Vomiting (N/V). [facility] ibuprofen 600 mg tablet 03-21 00:00: 00 Yes 600mg Take 1 tablet by mouth every 6 (six) hours as needed for Pain (scale 4-6). [facility] metroNIDAZO LE (FLAGYL) 500 mg tablet 05-12 00:00: 00 Yes [id number] 500mg Take 1 Tab by mouth 2 (two) times daily. [facility] metroNIDAZO LE (FLAGYL) 500 mg tablet 05-12 00:00: 00 Yes [id number] 500mg Take 1 Tab by mouth 2 (two) times daily. [facility] metroNIDAZO LE (FLAGYL) 500 mg tablet 05-12 00:00: 00 Yes [id number] 500mg Take 1 Tab by mouth 2 (two) times daily. [facility] metroNIDAZO LE (FLAGYL) 500 mg tablet 05-12 00:00: 00 Yes [id number] 500mg Take 1 Tab by mouth 2 (two) times daily. [facility] metroNIDAZO LE (FLAGYL) 500 mg tablet 05-12 00:00: 00 Yes [id number] 500mg Take 1 Tab by mouth 2 (two) times daily. [facility] metroNIDAZO LE (FLAGYL) 500 mg tablet 05-12 00:00: 00 Yes [id number] 500mg Take 1 Tab by mouth 2 (two) times daily. [facility] metroNIDAZO LE (FLAGYL) 500 mg tablet 05-12 00:00: 00 Yes [id number] 500mg Take 1 Tab by mouth 2 (two) times daily. [facility] metroNIDAZO LE (FLAGYL) 500 mg tablet 05-12 00:00: 00 Yes [id number] 500mg Take 1 Tab by mouth 2 (two) times daily. [facility] metroNIDAZO LE (FLAGYL) 500 mg tablet 05-12 00:00: 00 Yes [id number] 500mg Take 1 Tab by mouth 2 (two) times daily. [facility] metroNIDAZO LE (FLAGYL) 500 mg tablet 05-12 00:00: 00 Yes [id number] 500mg Take 1 Tab by mouth 2 (two) times daily. [facility] metroNIDAZO LE (FLAGYL) 500 mg tablet 05-12 00:00: 00 Yes [id number] 500mg Take 1 Tab by mouth 2 (two) times daily. [facility] metroNIDAZO LE (FLAGYL) 500 mg tablet 05-12 00:00: 00 Yes [id number] 500mg Take 1 Tab by mouth 2 (two) times daily. [facility] metroNIDAZO LE (FLAGYL) 500 mg tablet 05-12 00:00: 00 Yes [id number] 500mg Take 1 Tab by mouth 2 (two) times daily. [facility] ORTHO TRI-CYCLEN- 28 (ORTHO TRI-CYCLEN, 28,) 0.18/0.215/ 0.25 mg-35 mcg (28) tablet 10-06 00:00: 00 Yes 1{tbl} Take 1 Tab by mouth daily. [facility] ORTHO TRI-CYCLEN- 28 (ORTHO TRI-CYCLEN, 28,) 0.18/0.215/ 0.25 mg-35 mcg (28) tablet 10-06 00:00: 00 Yes 1{tbl} Take 1 Tab by mouth daily. [facility] ORTHO TRI-CYCLEN- 28 (ORTHO TRI-CYCLEN, 28,) 0.18/0.215/ 0.25 mg-35 mcg (28) tablet 10-06 00:00: 00 Yes 1{tbl} Take 1 Tab by mouth daily. [facility] ORTHO TRI-CYCLEN- 28 (ORTHO TRI-CYCLEN, 28,) 0.18/0.215/ 0.25 mg-35 mcg (28) tablet 10-06 00:00: 00 Yes 1{tbl} Take 1 Tab by mouth daily. [facility] ORTHO TRI-CYCLEN- 28 (ORTHO TRI-CYCLEN, 28,) 0.18/0.215/ 0.25 mg-35 mcg (28) tablet 10-06 00:00: 00 Yes 1{tbl} Take 1 Tab by mouth daily. [facility] ORTHO TRI-CYCLEN- 28 (ORTHO TRI-CYCLEN, 28,) 0.18/0.215/ 0.25 mg-35 mcg (28) tablet 10-06 00:00: 00 Yes 1{tbl} Take 1 Tab by mouth daily. [facility] ORTHO TRI-CYCLEN- 28 (ORTHO TRI-CYCLEN, 28,) 0.18/0.215/ 0.25 mg-35 mcg (28) tablet 10-06 00:00: 00 Yes 1{tbl} Take 1 Tab by mouth daily. [facility] ORTHO TRI-CYCLEN- 28 (ORTHO TRI-CYCLEN, 28,) 0.18/0.215/ 0.25 mg-35 mcg (28) tablet 10-06 00:00: 00 Yes 1{tbl} Take 1 Tab by mouth daily. [facility] ORTHO TRI-CYCLEN- 28 (ORTHO TRI-CYCLEN, 28,) 0.18/0.215/ 0.25 mg-35 mcg (28) tablet 10-06 00:00: 00 Yes 1{tbl} Take 1 Tab by mouth daily. [facility] ORTHO TRI-CYCLEN- 28 (ORTHO TRI-CYCLEN, 28,) 0.18/0.215/ 0.25 mg-35 mcg (28) tablet 10-06 00:00: 00 Yes 1{tbl} Take 1 Tab by mouth daily. [facility] ORTHO TRI-CYCLEN- 28 (ORTHO TRI-CYCLEN, 28,) 0.18/0.215/ 0.25 mg-35 mcg (28) tablet 10-06 00:00: 00 Yes 1{tbl} Take 1 Tab by mouth daily. [facility] ORTHO TRI-CYCLEN- 28 (ORTHO TRI-CYCLEN, 28,) 0.18/0.215/ 0.25 mg-35 mcg (28) tablet 10-06 00:00: 00 Yes 1{tbl} Take 1 Tab by mouth daily. [facility] ORTHO TRI-CYCLEN- 28 (ORTHO TRI-CYCLEN, 28,) 0.18/0.215/ 0.25 mg-35 mcg (28) tablet 10-06 00:00: 00 Yes 1{tbl} Take 1 Tab by mouth daily. [facility] Vital Signs Vital Name Observation Time Observation Value Comments S ource Systolic blood pressure 2020-08-21 14:59:00 131 mm[Hg] [facility] Diastolic blood pressure 2020-08-21 14:59:00 94 mm[Hg] [facility] Heart rate 2020-08-21 14:58:00 83 /min [facility] Body temperature 2020-08-21 14:58:00 36.78 Amber [facility] Respiratory rate 2020-08-21 14:58:00 16 /min [facility] Body height 2020-08-21 14:58:00 160 cm [facility] Body weight 2020-08-21 14:58:00 99.394 kg [facility] BMI 2020-08-21 14:58:00 38.82 kg/m2 [facility] Systolic blood pressure 2020-01-06 14:40:00 129 mm[Hg] [facility] Diastolic blood pressure 2020-01-06 14:40:00 88 mm[Hg] [facility] Heart rate 2020-01-06 14:40:00 69 /min [facility] Body temperature 2020-01-06 14:40:00 36.56 Amber [facility] Respiratory rate 2020-01-06 14:40:00 16 /min [facility] Body height 2020-01-06 14:40:[address] [facility] Body weight 2020-01-06 14:40:00 99.565 kg [facility] BMI 2020-01-06 14:40:00 38.88 kg/m2 [facility] Systolic blood pressure 2019-11-18 19:42:00 145 mm[Hg] [facility] Diastolic blood pressure 2019-11-18 19:42:00 97 mm[Hg] [facility] Heart rate 2019-11-18 19:41:00 65 /min [facility] Body temperature 2019-11-18 19:41:00 37 Amber [facility] Respiratory rate 2019-11-18 19:41:00 16 /min [facility] Body height 2019-11-18 19:41:[address] [facility] Body weight 2019-11-18 19:41:[address] [facility] BMI 2019-11-18 19:41:00 38.66 kg/m2 [facility] Systolic blood pressure 2018-11-11 02:42:00 138 mm[Hg] [facility] Diastolic blood pressure 2018-11-11 02:42:00 92 mm[Hg] [facility] Heart rate 2018-11-11 02:42:00 91 /min [facility] Body temperature 2018-11-11 02:42:00 36.72 Amber [facility] Respiratory rate 2018-11-11 02:42:00 18 /min [facility] Body weight 2018-11-11 02:42:00 99.791 kg [facility] BMI 2018-11-11 02:42:00 38.97 kg/m2 [facility] Oxygen saturation in Arterial blood by Pulse oximetry 2018-11-11 02:42:00 100 /min [place] [facility] Procedures Procedure Date / Time Performed Performing Clinicia n Source POCT URINALYSIS W/O SPECIFIC GRAVITY 2020-08-21 15:02:00 Araceli Curry [facility] FLU VACC ([id number]), 6+ MONTHS, IM, QUAD 2020-01-06 14:50:58 Araceli Curry [facility] ASSIGNMENT OF BENEFITS 2019-11-18 19:16:42 Docto r Unassigned, [place] [facility] XR HAND 3+ VW RIGHT 2018-11-11 02:49:58 Inna Livingston [facility] NOTICE OF PRIVACY PRACTICES 2018-11-11 02:28:37 Doctor Unassigned, [place] [facility] CONSENT/REFUSAL FOR DIAGNOSIS AND TREATMENT 2018-11-11 02:28:18 Doctor Unassigned, [place] [facility] Encounters Start Date/Time End Date/Time Encounter Type Admission Type Attending Clinicians Care Facility Care Department Encounter ID Source 2022-01-21 13:12:49 2022-01-21 13:12:[address] [facility] [id number] Aman Toribio 2020-11-24 14:15:00 2020-11-24 14:15:00 Outpatient R ARACELI CURRY [facility] [id number] [facility] 2020-11-18 08:15:00 2020-11-18 08:15:00 Outpatient R ARACELI CURRY [facility] [id number] [facility] 2020-08-24 00:00:00 2020-08-24 00:00:00 Telephone Araceli Curry [facility] [id number] [id number] [facility] 2020-08-21 09:46:13 2020-08-21 10:40:34 Office Visit Araceli Curry [facility] 1..840.114 [id number] [id number] [id number] [facility] 2020-08-21 09:45:00 2020-08-21 09:45:00 Outpatient R ARACELI CURRY [facility] [id number] [facility] 2020-06-13 13:20:00 2020-06-13 13:20:00 Outpatient R FRANCISCO BINGHAM [facility] [id number] [facility] 2020-05-23 13:20:00 2020-05-23 13:20:00 Outpatient R FRANCISCO BINGHAM [facility] [id number] [facility] 2020-01-21 15:40:41 2020-01-21 16:00:41 Laboratory Only Lab, [facility] ..840.114 [id number] [id number] [id number] [facility] 2020-01-21 15:40:00 2020-01-21 15:40:00 Outpatient R DAISY ESPANA [facility] [id number] [facility] 2020-01-06 09:28:13 2020-01-06 10:04:00 Office Visit Araceli Curry [facility] 1..840.114 350.1.13.10 [id number] [id number] [facility] 2020-01-06 09:30:00 2020-01-06 09:30:00 Outpatient R ARACELI CURRY [facility] [id number] [facility] 2019-12-02 08:00:00 2019-12-02 08:00:00 Outpatient R ARACELI CURRY [facility] [id number] [facility] 2019-11-18 14:18:37 2019-11-18 15:39:16 Office Visit Veronica Araceli Wiggins [facility] [id number] [id number] [id number] [id number] [facility] 2019-11-18 14:15:00 2019-11-18 14:15:00 Outpatient R JAQUELINMIGDALIAMIKIEARACELI [facility] [id number] [facility] 2019-11-18 14:15:00 2019-11-18 14:15:00 Outpatient R ARACELI CURRY [facility] [id number] [facility] 2019-11-18 00:00:00 2019-11-18 00:00:00 Orders Only Doctor Unassigned, [place] [facility] [id number] [id number] [id number] [id number] [facility] 2018-11-10 21:43:07 2018-11-10 22:49:00 Emergency Matthew Livingston [facility] [id number] [id number] [id number] [id number] [facility] 2018-11-10 00:00:00 2018-11-10 00:00:00 Orders Only Doctor Unassigned, [place] [facility] [id number] [id number] [id number] [id number] [facility] Results Test Description Test Time Test Comments Results Result Co mments Source CT/NG, NAAT, [id number] 13:14:00* Test Item Value Reference Range Interpretation Comme nts GONORRHEA, NAAT (test code = 67042) NEGATIVE NEGATIVE IMPORTANT NO NA: SEE ANNOUNCEMENT AT [email or web address] Note: Testing is performed with Vic JEREL 6800/8800 method using real-time polymerase chain reaction (PCR) method. CHLAMYDIA, NAAT (test code = 01164) NEGATIVE NEGATIVE IMPORTANT NO NA: SEE ANNOUNCEMENT AT [email or web address] Note: Testing is performed with Vic JEREL 6800/8800 method using real-time polymerase chain reaction (PCR) method. UNLESS OTHERWISE INDICATED, ALL TESTING PERFORMED [facility] [employer] [address] [place] [address] CABLE SPLICING TECHNICIAN: LUISITO CARCAMO M.D. [place] NUMBER [id number] [facility] [place]. [id number] POCT URINALYSIS W/O SPECIFIC [id number] 15:02:00* Test Item Value Reference Range Interpretation Comme nts POCT PH U (test code = 3254) 6 mg/dl 5-8 POCT U LEUK EST (test code = 3263) Neg Negative - Negative POCT U NIT (test code = 3262) Neg Negative - Negati ve POCT U PROT (test code = 3259) Trace Negative - Negat mike POCT U GLU (test code = 3256) Neg Negative - Negati ve POCT U KETONE (test code = 3258) Small Negative - Neg ative POCT U BLD (test code = 3257) Trace Negative - Negati ve [facility] URINALYSIS W/O SPECIFIC [id number] 15:02:00* Test Item Value Reference Range Interpretation Comme nts POCT PH U (test code = 3254) 6 mg/dl 5-8 POCT U LEUK EST (test code = 3263) Neg Negative - Negative POCT U NIT (test code = 3262) Neg Negative - Negati ve POCT U PROT (test code = 3259) Trace Negative - Negat mike POCT U GLU (test code = 3256) Neg Negative - Negati ve POCT U KETONE (test code = 3258) Small Negative - Neg ative POCT U BLD (test code = 3257) Trace Negative - [facility]ati [facility] SPECIFIC [id number] 15:02:00* Test Item Value Reference Range Interpretation Comme nts POCT PH U (test code = 3254) 6 mg/dl 5-8 POCT U LEUK EST (test code = 3263) Neg Negative - Negative POCT U NIT (test code = 3262) Neg Negative - Negati ve POCT U PROT (test code = 3259) Trace Negative - Negat mike POCT U GLU (test code = 3256) Neg Negative - Negati ve POCT U KETONE (test code = 3258) Small Negative - Neg ative POCT U BLD (test code = 3257) Trace Negative - Negati ve [facility]
[2023-03-16 13:54] LABS: SARS-COV-2 RT PCR NEGATIVE (NEGATIVE)
--- NOTE | 2023-03-16 14:10 | ER ---
Nurse's Notes [facility] Name: Alicia Hare Age: 33 yrs Sex: Female : 1990 Arrival Date: 03/16/2023 Time: 12:19 Bed 11 Private MD: Diagnosis: Viral infection, unspecified Presentation: 03/16 12:29 Chief complaint: Patient states: Cough, congestion, and fever. Pt states that her cm10 symptoms began after going on a cruise. Pt reports decreased appetite. Coronavirus screen: Vaccine status: Patient reports receiving the 2nd dose of the covid vaccine. Client denies travel out of the [place] in the last 14 days. Ebola Screen: Patient denies travel to an Ebola-affected area in the 21 days before illness onset. No symptoms or risks identified at this time. Initial Sepsis Screen: Does the patient meet any 2 criteria? No. Patient's initial sepsis screen is negative. Does the patient have a suspected source of infection? No. Patient's initial sepsis screen is negative. Risk Assessment: Do you want to hurt yourself or someone else? Patient reports no desire to harm self or others. Onset of symptoms was March 16, 2023. 12:29 Method Of Arrival: Ambulatory cm10 12:29 Acuity: ANA 4 cm10 Triage Assessment: 13:23 General: Appears in no apparent distress. Behavior is calm, cooperative. tl4 [employer] F[employer]: 13:23 LMP N/A - Post-menopause, Not tl4 Historical: - Allergies: 12:32 No Known Allergies; cm10 - Home Meds: 12:32 None [Active]; cm10 - PMHx: 12:32 None; cm10 - PSHx: 12:32 None; cm10 - Immunization history:: Adult Immunizations unknown. - Social history:: Smoking status: Patient denies any tobacco usage or history of. Screenin:22 [facility] ED Fall Risk Assessment (Adult) History of falling in the last 3 months, tl4 including since admission No falls in past 3 months (0 pts) Confusion or Disorientation No (0 pts) Intoxicated or Sedated No (0 pts) Impaired Gait No (0 pts) Mobility Assist Device Used No (0 pt) Altered Elimination No (0 pt) Score/Fall Risk Level 0 - 2 = Low Risk. Abuse screen: Denies threats or abuse. Denies injuries from another. Nutritional screening: No deficits noted. Tuberculosis screening: No symptoms or risk factors identified. Assessment: 13:21 Reassessment: No changes from previously documented assessment. Patient and/or family tl4 updated on plan of care and expected duration. Pain level reassessed. Patient is alert, oriented x 3, equal unlabored respirations, skin warm/dry/pink. Pain: Complains of pain in generalized body aches. Vital Signs: 12:29 BP 143 / 95; Pulse 86; Resp 18 S; Temp 98.1(O); Pulse Ox 100% on R/A; Weight 96.16 kg; cm10 Height 5 ft. 3 in. ; Pain 5/10; 12:29 Body Mass Index 37.55 (96.16 kg, 160.02 cm) cm10 12:29 Pain Scale: Adult cm10 ED Course: 12:21 Patient arrived in ED. mr 12:23 Jefry Ibarra MD is Attending Physician. ec2 12:32 Triage completed. cm10 12:32 Arm band placed on Patient placed in an exam room, on a stretcher. cm10 12:41 Choco Calle is Primary Nurse. tl4 13:03 Strep Sent. cm10 13:03 COVID-19/FLU A+B/RSV Sent. cm10 13:22 Patient has correct armband on for positive identification. Bed in low position. Call tl4 light in reach. Side rails up X2. Provided Education on: ED process. 13:22 No provider procedures requiring assistance completed. tl4 14:33 Patient did not have IV access during this emergency room visit. tl4 Administered Medications: 13:03 Drug: Ketorolac IM 30 mg IM once Route: IM; Site: left gluteus; cm10 14:33 Follow up: Response: Pain is decreased tl4 Medication: 13:22 VIS not applicable for this client. tl4 Outcome: 14:10 Discharge ordered by . ec2 14:33 Discharged to home ambulatory, tl4 14:33 Condition: stable 14:33 Discharge instructions given to patient, Instructed on discharge instructions, follow up and referral plans. medication usage, Demonstrated understanding of instructions, follow-up care, medications, 14:33 Patient left the ED. tl4 Signatures: Landy White, Adán Reg Elisa Valdez RN RN cm10 Jefry Ibarra MD MD ec2 Choco Calle tl4 Corrections: (The following items were deleted from the chart) :32 12:32 PSHx: Unable to Obtain; cm10 cm10 :32 12:32 PSHx: Unable to Obtain; cm10 cm10
--- NOTE | 2023-03-16 14:10 | EDPHYS ---
Physician Documentation [facility] Name: Alicia Hare Age: 33 yrs Sex: Female : 1990 Arrival Date: 03/16/2023 Time: 12:19 Bed 11 Private MD: ED Physician Jefry Ibarra HPI: 03/16 12:38 This 33 yrs old Black Female presents to ER via Ambulatory with complaints of Flu ec2 Symptoms. 12:38 Patient arrives today for evaluation of URI signs and symptoms. Patient reports that ec2 she is been having cough and congestion along with decreased p.o. intake for the past several days. Patient reports that she recently returned from a cruise and subsequently feels that she got it from them. Patient reports no vomiting or diarrhea. Does report subjective fevers and chills as well as body aches.. MANAGER BUSINESS INFORMATION: 13:23 LMP N/A - Post-menopause, Not tl4 Historical: - Allergies: 12:32 No Known Allergies; cm10 - Home Meds: 12:32 None [Active]; cm10 - PMHx: 12:32 None; cm10 - PSHx: 12:32 None; cm10 - Immunization history:: Adult Immunizations unknown. - Social history:: Smoking status: Patient denies any tobacco usage or history of. ROS: 12:38 Constitutional: as per hpi ec2 Exam: 12:38 Constitutional: GEN: NAD Head: atraumatic Eyes: EOMI Ears: External ears are ec2 normal. CV: regular rate LUNGS: no respiratory distress, no wheezes, no rales, no rhonchi ABD: non-distended SKIN: no evidence of rashes MSK: no evidence of trauma NEURO: moves all extremities equally Vital Signs: 12:29 BP 143 / 95; Pulse 86; Resp 18 S; Temp 98.1(O); Pulse Ox 100% on R/A; Weight 96.16 kg; cm10 Height 5 ft. 3 in. ; Pain 5/10; 12:29 Body Mass Index 37.55 (96.16 kg, 160.02 cm) cm10 12:29 Pain Scale: Adult cm10 MDM: 12:28 Patient medically screened. ec2 12:38 Data reviewed: vital signs. ED course: Patient arrives today for evaluation of URI ec2 signs and symptoms. Examination remarkable for well-appearing nontoxic dividual is otherwise in no acute distress. Will obtain viral swab, give the patient Toradol and reassess the patient. Suspect viral process causing patient's symptoms, low suspicion for pneumonia given lack of focal lung sounds on respiratory examination. Accordingly will defer chest x-ray.. 14:09 ED course: Patient is RSV positive. Will discharge home have her follow-up with primary ec2 care doctor. Return precautions given.. 03/16 12:33 Order name: COVID-19/FLU A+B/RSV; Complete Time: 14:09 ec2 03/16 12:33 Order name: Strep; Complete Time: 13:47 ec2 03/16 13:35 Order name: Throat Culture EDMS Administered Medications: 13:03 Drug: Ketorolac IM 30 mg IM once Route: IM; Site: left gluteus; cm10 14:33 Follow up: Response: Pain is decreased tl4 Disposition Summary: 03/16/23 14:10 Discharge Ordered Notes: Location: Home ec2 Condition: Stable ec2 Diagnosis - Viral infection, unspecified ec2 Followup: ec2 - With: Private Physician - When: - Reason: Recheck today's complaints Discharge Instructions: - Discharge Summary Sheet ec2 - Viral Illness, Adult ec2 Forms: - Work release form ec2 - Medication Reconciliation Form ec2 - Thank You Letter ec2 - Antibiotic Education ec2 - Prescription Opioid Use ec2 - Patient Portal Instructions ec2 - Leadership Thank You Letter ec2 Prescriptions: - Compazine 10 mg Oral Tablet - take 1 tablet ORAL route every 8 hours As needed; 20 tablet; Refills: 0, ec2 Product Selection Permitted Signatures: Dispatcher [employer] Elisa Garrido, DIMITRI RN cm10 Jefry Ibarra MD MD ec2 Logdahl, Choco tl4 Corrections: (The following items were deleted from the chart) 12:32 12:32 PSHx: Unable to Obtain; cm10 cm10 12:32 12:32 PSHx: Unable to Obtain; cm10 cm10
[2023-03-16 15:50] VITALS: BP 143/95; TEMP 98.1; O2SAT 100
== END ==
LOC: ER 12:19
DX: R05.9 Cough, unspecified (principal); B97.4 Respiratory syncytial virus as the cause of diseases classified elsewhere; Z11.52 Encounter for screening for COVID-19
CPT/HCPCS: 0241U; 87070; 87081; 96372; 99284